=== PATIENT | female | born 1960 | race Caucasian/White ===

== ENCOUNTER 2020-12-14 17:36 | Observation (INO) | payer BC, SELFPAY ==
--- NOTE | ~2020-12-14 | XR_ITS ---
EXAMINATION: XR fluoroscopy no charge DATE: 12/15/2020 09:04 INDICATION: Right ureteral stone. TECHNIQUE: 4 intraoperative fluoroscopic views of the abdomen and pelvis were obtained. I was not pre sent. Fluoroscopy exposure time was 13 seconds. COMPARISON: CT abdomen and pelvis 12/14/2020 FINDINGS: The sound effects person radiograph demonstrates 2 stones in the distal right ureter. Additional images de monstrate a wire in the ureter with absence of the stones. IMPRESSION: 1. Removal of 2 stones from the distal right ureter. Reviewed, dictated and finalized at location A.
--- NOTE | ~2020-12-14 | CT_ITS ---
EXAMINATION: CT abdomen pelvis wo con DATE: 12/14/2020 18:36 INDICATION: Right flank pain TECHNIQUE: Computed tomography (CT) of the abdomen and pelvis was performed without intravenous contr ast. The dose-length product was 930.02 mGy-cm. Automated exposure control and iterative reconstructi on technique were employed. COMPARISON: None. FINDINGS: There is dependent atelectasis. Heart size normal. No significant pleural or pericardial ef fusion. There is a 6 mm right UVJ stone with moderate-severe right hydroureteronephrosis. There are n onobstructing bilateral renal stones. The liver, spleen, pancreas, adrenal glands are unremarkable. S mall fat-containing umbilical hernia. Normal appendix. Nonobstructive bowel gas pattern. No acute oss eous abnormality. There are accessory splenules in the left upper abdomen. IMPRESSION: 1. Right UVJ stone measuring 6 mm with moderate-severe right hydroureteronephrosis. 2: Nonobstructing bilateral renal stones. Reviewed, dictated and finalized at location A. IMPRESSION: 1. Right UVJ stone measuring 6 mm with moderate-severe right hydroureteronephro sis. 2: Nonobstructing bilateral renal stones.
[2020-12-14 17:50] VITALS: BP 132/67; PULSE 65; RESP 20; TEMP 36.4; O2SAT 99
--- NOTE | 2020-12-14 18:15 | ED.ABDPAIN ---
HPI - Abdominal Pain General Chief Complaint: Abdominal Pain Stated Complaint: r flank pain Time Seen by Provider: 12/14/20 18:10 Source: patient Mode of arrival: ambulatory Limitations: no limitations History of Present Illness HPI narrative: Patient is a 60-year-old female complaining of right flank pain, 7 out of 10, sharp, nonradiating accompanied by urinary pressure that started today. Patient denies any chest pain, shortness of breath, abdominal pain, nausea, vomiting, diarrhea, fever or chills. Related Data Allergies Allergy/AdvReac Type Severity Reaction Status Date / Time Sulfa (Sulfonamide Allergy Unknown Verified 12/14/20 18:55 Antibiotics) Review of Systems Review of Systems: All systems reviewed & are unremarkable except as noted in HPI and below Constitutional: Constitutional: Denies body ache(s), Denies chills, Denies excessive sweating, Denies fatigue, Denies fever(s), Denies headache(s), Denies lethargy, Denies malaise, Denies weakness and Denies weight loss Eyes: Eyes: Denies blurry vision, Denies change in vision and Denies loss of vision ENT: Denies dizziness, Denies ear discharge, Denies headache(s), Denies lip swelling, Denies epistaxis, Denies nasal congestion, Denies neck pain, Denies throat swelling and Denies tongue swelling Cardiovascular: Cardiovascular: Denies chest pain, Denies chest pain at rest, Denies chest pain with activity, Denies diaphoresis, Denies rapid heart rate, Denies edema, Denies irregular heart rhythm, Denies lightheadedness, Denies palpitations, Denies dyspnea and Denies dyspnea on exertion Respiratory: Respiratory: Denies chest congestion, Denies cough, Denies hemoptysis, Denies dyspnea and Denies dyspnea on exertion Gastrointestinal: Gastrointestinal: Denies abdominal pain, Denies melena, Denies hematochezia, Denies diarrhea, Denies nausea, Denies vomiting and Denies hematemesis Musculoskeletal: Musculoskeletal: Denies abnormal gait, Denies deformity, Denies joint swelling, Denies limited range of motion, Denies neck pain and Denies numbness Neurologic: Denies Abnormal speech present, Denies abnormal gait, Denies confusion, Denies dizziness, Denies headache(s), Denies focal weakness, Denies loss of vision, Denies numbness, Denies Other visual disturbances, Denies Sensory deficit (Neuro) and Denies weakness Psychiatric: Psychiatric: Denies confusion, Denies depression, Denies auditory hallucinations, Denies homicidal ideation and Denies suicidal ideation Endocrine: Endocrine: Denies cold intolerance, Denies excessive sweating, Denies fatigue, Denies heat intolerance and Denies palpitations Hematologic/Lymphatic: Hematologic/Lymphatic: Denies easy bleeding and Denies easy bruising Allergic/Immunologic: Allergic/Immunologic: Denies lip swelling, Denies throat swelling and Denies tongue swelling PMFSH Social History Social History Gender identity (if verbalized by the patient): Female Comments Past medical history: None Family history: Noncontributory Social history: Non-smoker no EtOH or drug use Exam Const: General: cooperative, healthy appearing, comfortable, no acute distress, well developed, alert and awake; No confusion Orientation/consciousness: oriented to person, oriented to place, oriented to time, patient oriented x3 and No confusion Limitations: no limitations HENMT: Head: normal to inspection, normocephalic and atraumatic Ears: hearing grossly normal bilaterally, TM normal on the right and TM normal on the left General nose exam: Normal external nose present, Normal nares present and No nasal discharge present Face and sinus: normal facial exam Mouth: Yes Normal oral and palatal mucosa present, Yes lip normal, Yes tongue normal and Yes oropharynx normal Throat: posterior oropharynx normal, tonsils normal and uvula midline Eyes: General: appearance normal, both eyes and all related structures Pupils: Equ
[2020-12-14] MEDS: SODIUM CHLORIDE 0.9% IV 1,000 ML 999 ML IV CONT (18:22)
--- NOTE | 2020-12-14 18:25 | PC.NURSE ---
Pt unable to give urine sample at this time.
[2020-12-14 18:27] LABS: Basophils Absolute Auto 0.1 K/mm3 (0.0-0.1); Basophils Percent Auto 0.4 % (0.2-1.2); Eosinophils Absolute Auto 0.1 K/mm3 (0-0.3); Eosinophils Percent Auto 0.5 % (0-4.4); Hematocrit 41.2 % (37.0-47.0); Hemoglobin 13.7 g/dL (12.0-15.0); Immature Granulocyte Absolute 0.03 K/mm3 (0.00-0.031); Immature Granulocyte Percent A 0.2 % (0-0.5); Lymphocytes Absolute Auto 1.96 K/mm3 (0.9-3.2); Lymphocytes Percent Auto 16.3 % (18.3-44.2); Mean Corpuscular HGB Conc 33.3 g/dl (32-36); Mean Corpuscular Hemoglobin 32.2 pg (26-34); Mean Corpuscular Volume 96.7 fl (80-100); Mean Platelet Volume 11.3 fl (7.4-10.4); Monocytes Absolute Auto 0.5 K/mm3 (0.1-0.6); Neutrophils Absolute Auto 9.4 K/mm3 (1.3-6.7); Neutrophils Percent Auto 78.6 % (45.5-73.1); Platelet Count Result 195 k/mm3 (150-375); Red Blood Count 4.26 M/mm3 (4.2-5.4); Red Cell Distribution Width 14.2 % (11.5-14.5)
[2020-12-14 18:41] LABS: Alanine Aminotransferase 19 U/L (4-35); Albumin Level 4.3 g/dL (3.5-5.1); Alkaline Phosphatase 73 U/L (38-126); Anion Gap 6 mmol/L (8-16); Aspartate Amino Transferase 31 U/L (14-36); Bilirubin,Total 0.3 mg/dL (0.2-1.3); Blood Urea Nitrogen 21 mg/dL (7-17); Calcium 9.3 mg/dL (8.4-10.2); Carbon Dioxide 30 mmol/L (22-30); Chloride 105 mmol/L (98-107); Estimated CRCL calculation 64 ml/min; Estimated Glomerular Filt Rate > 60; Glucose 137 mg/dL (65-105); Lipase 80 U/L (23-300); Potassium 3.8 mmol/L (3.4-5.0); Sodium 141 mmol/L (137-145)
[2020-12-14] MEDS: PROMETHAZINE HCL 25 MG/ML AMPUL 12.5 MG IV PUSH (18:57)
[2020-12-14] MEDS: KETOROLAC 30 MG/ML VIAL (*BKC) IV PUSH (18:57)
[2020-12-14] MEDS: TAMSULOSIN HCL 0.4 MG CAPSULE PO (19:05)
[2020-12-14 20:17] LABS: Add Urine Microscopic? YES; Appearance Urine Clear (Clear); Bacteria Urine Trace /hpf; Bilirubin Urine Negative (Negative); Blood Urine Negative (Negative); Color Urine Straw (Yellow); Glucose Urine UA Negative (Negative); Ketones Urine Trace mg/dL (Negative); Leukocyte Esterase Ur Trace LEU/UL (Negative); Mucus Urine Rare /lpf; Nitrate Urine Negative (Negative); Protein Urine Negative (Negative); Specific Grav Ur 1.014 (1.001-1.035); Squamous Epithelial Cell Urine Rare /hpf (Few); Urobilinogen Urine Negative mg/dL (<2.0); WBC Urine 0-3 /hpf
[2020-12-14 21:45] VITALS: BP 118/64; PULSE 73; RESP 18; O2SAT 96
[2020-12-14] MEDS: HYDROmorphone HCL INJ (*CRX) 1 MG/ML SYR 0.5 MG IV PUSH (22:00)
[2020-12-14 22:35] VITALS: BP 120/69; PULSE 79; RESP 18; O2SAT 94
--- NOTE | 2020-12-14 23:45 | ADMGEN ---
This patient, Sue Connolly, was admitted to Medical Room 343-01. Patient/family oriented to hospital policies and general routines including ID bracelet, bed and alarms, visiting hours, pain management, procedures, bathroom and other care routines, personal items, smoking policy, room service/diet, and visiting hours. Information on how to activate the Rapid Response Team has been discussed. Patient/Family are encouraged to report perceived risks to care and to ask questions if they do not understand what they are told or what they should do.
[2020-12-15] VITALS (8 sets, daily range): BP systolic 81–145; BP diastolic 39–64; PULSE 60–85; RESP 11–18; TEMP 36.2–37.1; O2SAT 95–98; BMI 28.3
[2020-12-15] MEDS: LACTATED RINGERS 1,000 ML 125 ML IV CONT (00:08)
--- NOTE | 2020-12-15 06:16 | WPDANESEPP ---
Anes - Eval Pre Procedure Procedure: Cysto, stone extraction, stent placement, MATTHEW Date/Time: 12/15/20 06:16 Surgeon: Matheus Pre Op Diagnosis: Acute unilateral obstructive uropathy Patient Data Age: 60 Gender: F Height: 5 ft 11 in Weight: 92 kg Last Vital Signs Temp 97.6 F 12/15/20 05:18 Pulse 85 12/15/20 05:18 Resp 18 12/15/20 05:18 BP 124/57 L 12/15/20 05:18 Pulse Ox 96 12/15/20 05:18 Allergies Allergy/AdvReac Type Severity Reaction Status Date / Time Sulfa (Sulfonamide Allergy Unknown Verified 12/14/20 23:57 Antibiotics) nitrofurantoin AdvReac Fatigued Verified 12/14/20 23:57 [From Macrobid] Home Medications Medication Instructions Recorded Confirmed Type ascorbic acid (vitamin C) 500 mg PO DAILY 12/15/20 12/15/20 History calcium carbonate-vitamin D3 [All 1 tablet PO DAILY 12/15/20 12/15/20 History Day Calcium] cyanocobalamin (vitamin B-12) 500 mcg PO DAILY 12/15/20 12/15/20 History [Vitamin B-12] multivitamin,[id number]-[id number] 1 tablet PO DAILY 12/15/20 12/15/20 History [Complete Multivitamin] vitamin E 1 tablet PO DAILY 12/15/20 12/15/20 History Laboratory Tests 12/14/20 12/14/20 12/14/20 18:17 18:17 20:04 WBC 12.0 K/mm3 H K/mm3 (4.5-10.0) RBC 4.26 M/mm3 M/mm3 (4.2-5.4) Hgb 13.7 g/dL g/dL (12.0-15.0) Hct 41.2 % % (37.0-47.0) MCV 96.7 fl fl (80-100) MCH 32.2 pg pg (26-34) MCHC 33.3 g/dl g/dl (32-36) RDW 14.2 % % (11.5-14.5) Plt Count 195 k/mm3 k/mm3 (150-375) MPV 11.3 fl H fl (7.4-10.4) Immature Gran % (Auto) 0.2 % % (0-0.5) Neut % (Auto) 78.6 % H % (45.5-73.1) Lymph % (Auto) 16.3 % L % (18.3-44.2) [place] % (Auto) 4.0 % % (2.6-8.5) Eos % (Auto) 0.5 % % (0-4.4) Baso % (Auto) 0.4 % % (0.2-1.2) Lymph # (Auto) 1.96 K/mm3 K/mm3 (0.9-3.2) [place] # (Auto) 0.5 K/mm3 K/mm3 (0.1-0.6) Eos # (Auto) 0.1 K/mm3 K/mm3 (0-0.3) Baso # (Auto) 0.1 K/mm3 K/mm3 (0.0-0.1) Abs Immat Gran (auto) 0.03 K/mm3 K/mm3 (0.00-0.031) Absolute Neuts (auto) 9.4 K/mm3 H K/mm3 (1.3-6.7) Absolute Nucleated RBC 0.0 K/mm3 K/mm3 (0.0-0.012) Nucleated RBC % 0.0 % % (0.0-0.2) Sodium 141 mmol/L mmol/L (137-145) Potassium 3.8 mmol/L mmol/L (3.4-5.0) Chloride 105 mmol/L mmol/L (98-107) Carbon Dioxide 30 mmol/L mmol/L (22-30) Anion Gap 6 mmol/L L mmol/L (8-16) BUN 21 mg/dL H mg/dL (7-17) Creatinine 0.90 mg/dL mg/dL (0.7-1.0) Estim Creat Clear Calc 64 ml/min ml/min Estimated GFR > 60 (59 - ) Glucose 137 mg/dL H mg/dL (65-105) Calcium 9.3 mg/dL mg/dL (8.4-10.2) Total Bilirubin 0.3 mg/dL mg/dL (0.2-1.3) AST 31 U/L U/L (14-36) ALT 19 U/L U/L (4-35) Alkaline Phosphatase 73 U/L U/L (38-126) Total Protein 8.0 g/dL g/dL (6.3-8.2) Albumin 4.3 g/dL g/dL (3.5-5.1) Lipase 80 U/L U/L (23-300) Urine Color Straw (Yellow) Urine Appearance Clear (Clear) Urine pH 7.0 (5.0-9.0) Ur Specific [place] 1.014 (1.001-1.035) Urine Protein Negative mg/dL mg/dL (Negative) Urine Glucose (UA) Negative mg/dL mg/dL (Negative) Urine Ketones Trace mg/dL mg/dL (Negative) Ur Blood (Man) Negative (Negative) Urine Nitrate Negative (Negative) Urine Bilirubin Negative (Negative) Urine Urobilinogen Negative mg/dL mg/dL (<2.0) Leukocyte Esterase Rfl Trace DEVIN/UL H DEVIN/UL (Negative) Urine RBC 3-5 /hpf H /hpf (0-2) Urine WBC 0-3 /hpf /hpf Ur Squamous Epith Cells Rare /hpf /hpf (Few)
--- NOTE | 2020-12-15 07:18 | WPDURCON ---
Urology Consult Note HPI Date Seen: 12/15/20 Requesting Physician: Radha Marroquin DO Primary Care Provider: VP CLIENT SERVICES PHYSICIAN Consult Narrative Narrative: Sue Connolly is a 60 year old female who spontaneously passed 1 ureteral stone several years ago. She presents to the ER last night with acute right flank pain radiating to right lower quadrant. Associated with nausea but no vomiting. She had no fever chills or gross hematuria. Imaging demonstrates several small bilateral nonobstructing kidney stones in 6 mm right distal ureteral stone with significant hydronephrosis. She is admitted for hydration and analgesics and we have scheduled cystoscopy with right ureteroscopy, stone extraction and possible stent placement she is aware the risk including, but not limited to, ureteral injury postoperative hematuria stent irritation. Review of Systems Cardiovascular: Cardiovascular: Denies chest pain, Denies lightheadedness, Denies palpitations and Denies dyspnea Respiratory: Respiratory: Denies dyspnea Gastrointestinal: Gastrointestinal: Denies diarrhea, Denies nausea and Denies vomiting Genitourinary: Genitourinary: Denies hematuria and Denies dysuria Endocrine: Endocrine: Denies palpitations PMF Past Medical History Medical History Acute unilateral obstructive uropathy Overweight (BMI 25.0-29.9) Surgical History Surgical History History of partial hysterectomy Family History Family History Father Colon cancer H/O myomectomy Social History Social History Smoking status: Never smoker Alcohol intake: never Substance use: never Gender identity (if verbalized by the patient): Female Sexual Orientation (if Verbalized by the Patient): Straight or Heterosexual Spiritual care concerns: No Meds Home Medications and Allergies Home Medications Medication Instructions Recorded Confirmed Type ascorbic acid (vitamin C) 500 mg PO DAILY 12/15/20 12/15/20 History calcium carbonate-vitamin D3 [All 1 tablet PO DAILY 12/15/20 12/15/20 History Day Calcium] cyanocobalamin (vitamin B-12) 500 mcg PO DAILY 12/15/20 12/15/20 History [Vitamin B-12] multivitamin,[id number]-yqty-[id number] 1 tablet PO DAILY 12/15/20 12/15/20 History [Complete Multivitamin] vitamin E 1 tablet PO DAILY 12/15/20 12/15/20 History Allergies Allergy/AdvReac Type Severity Reaction Status Date / Time Sulfa (Sulfonamide Allergy Unknown Verified 12/14/20 23:57 Antibiotics) nitrofurantoin AdvReac Fatigued Verified 12/14/20 23:57 [From Macrobid] Vital Signs Vital Signs - 24 hr 12/14/20 17:50 12/14/20 21:45 12/14/20 22:35 Temperature 97.5 F L Pulse Rate 65 73 79 Respiratory Rate 20 18 18 Blood Pressure 132/67 118/64 120/69 Pulse Oximetry 99 96 94 12/15/20 00:00 12/15/20 00:05 12/15/20 05:18 Temperature 98.7 F 98.7 F 97.6 F Pulse Rate 84 84 85 Respiratory Rate 16 16 18 Blood Pressure 145/64 H 145/64 H 124/57 L Pulse Oximetry 98 98 96 Exam Const: General: no acute distress Resp: Effort & Inspection: normal respiratory effort GI: Inspection: non-distended GI Palp: No abdominal tenderness and No Guarding due to palpation present (GI) Auscultation: normal bowel sounds Results Labs CBC & Chem 7: 12/14/20 18:17 12/14/20 18:17 Labs: Short CBC 12/14/20 Range/Units 18:17 WBC 12.0 H (4.5-10.0) K/mm3 Hgb 13.7 (12.0-15.0) g/dL Hct 41.2 (37.0-47.0) % Plt Count 195 (150-375) k/mm3 [facility] 12/14/20 18:17 Sodium 141 Potassium 3.8 Chloride 105 Carbon Dioxide 30 BUN 21 H Creatinine 0.90 Glucose 137 H Calcium 9.3 Liver Function 12/14/20 Range/Units 18:17 Total Bilirubin 0.3 (0.2-1.3) mg/dL AST 31 (14-36) U
--- NOTE | 2020-12-15 07:25 | WPDHPUPDATE1 ---
History and Physical Update Update Date/Time: 12/15/20 07:25 History and Physical has been reviewed, including an updated exam of the patient. There are NO changes in the patient's condition. Risks, benefits, and alternatives have been discussed and questions answered. Patient agrees to proceed with procedure.
[2020-12-15] MEDS: LACTATED RINGERS 1,000 ML 30 ML IV CONT (07:30)
--- NOTE | 2020-12-15 07:39 | WPDANESEFPP ---
Anes - Eval Final PreProcedure Day of Procedure 12/15/20 07:39 Patient weight: overweight Heart: regular rate and rhythm Lungs: clear to auscultation and normal air movement Airway: Mallampati scale class II Neurological: alert and oriented Last oral intake: >/= 8 hours ASA classification: II Emergent: yes Anesthetic plan: proceed Anesthesia type and monitoring: general LMA and standard monitoring Informed Consent: The patient's anesthetic plan and its attendant risks and benefits were discussed with the patient/family/POA. Questions were solicited and answers provided to the satisfaction of the patient/family/POA.
[2020-12-15] MEDS: ceFAZolin 2 GM/D5W 50 ML 2 GM/50 ML BAG IVPB (07:43)
[2020-12-15] MEDS: KETOROLAC 30 MG/ML VIAL (*BKC) IV PUSH (08:00)
--- NOTE | 2020-12-15 08:05 | PM.PROC ---
Procedure Note - Detailed Date of procedure: 12/15/20 Pre-op diagnosis: Acute unilateral obstructive uropathy Post-op diagnosis: same Procedure performed: Cystoscopy, right ureteroscopy with stone extraction Description of procedure: The patient was brought to the operative suite where she is prepped and draped in a routine sterile fashion while in the dorsal lithotomy position after the uneventful induction of a general LMA anesthetic. A 19F rigid cystoscope was placed in the bladder. The patient had no evidence of urethral stricture or bladder neck contracture. The bladder mucosa was endoscopically normal without hyperemia or neoplasm. There was a single, orthotopic ureteral orifice bilaterally. A 0.035 glidewire was advanced into the right renal pelvis under fluoroscopy. The distal ureter was dilated with an 8F/10F ureteral dilator. Ureteroscopy was undertaken with a short, tapered, semi-rigid ureteroscope and the stones (actually 2 small contiguous stones) were extracted with ease using a 1.9F Escape disposable stone basket. Due to the ease of this manipulation I opted not to place a ureteral stent. The patient's bladder was emptied and was taken to the recovery room having tolerated this procedure well. Anesthesia: GLMA Surgeon: Anil Jarvis MD Estimated blood loss (mL): 0 Drains: No Packing: No Pathology: yes Complications: No immediate complications Condition: stable Disposition: PACU
--- NOTE | 2020-12-24 16:02 | PM.DS ---
DS: Admitting Diagnosis Admitting Diagnosis Admitting Diagnosis: Right ureteral stone DS: Discharge Diagnosis Discharge Diagnosis (1) Right ureteral stone: Code(s): N20.1 - Calculus of ureter Status: Acute DS: Summary Hospital Course Hospital Course: Admitted with painful right ureteral stone. Following uneventful extraction she tolerated diet and had minimal pain -> hence, decision for discharge. Time Spent with Patient Time attestation: Total time spent providing and/or coordinating discharge services:20 min Exam Const: General: no acute distress Resp: Effort & Inspection: normal respiratory effort GI: Inspection: non-distended GI Palp: No abdominal tenderness and No Guarding due to palpation present (GI) Auscultation: normal bowel sounds DS: Data Data Completed and Pending Completed studies during hospitalization: Pending at discharge 12/15/20 07:59 Surgical [PTH] Routine Discharge Plan Discharge Attending physician on discharge: Radha Marroquni Consulting providers: Anil Jarvis ; Aren Gutierrez ; Jewel Howell V. Discharging Clinician: Radha Marroquin Patient Disposition: Home, Self-Care Activity: no shower Diet: as tolerated Discharge Instructions: 1) Activity: no driving or important decisions x24 hours. 2) Diet: resume your normal, pre-admission diet. 3) Follow-up: 2-3 weeks / call for appointment ([phone]). Patient Instructions: Antibiotic Form Stand Alone Forms: General Discharge Information Follow-up/Referrals: Anil Jarvis MD [Physician] - Discharge Medications: New hydrocodone-acetaminophen 5-325 mg tablet 1 - 2 tablet PO Q6H PRN (Reason: pain) Qty: 20 RF: 0 cephalexin 500 mg capsule 500 mg PO Q8H Qty: 9 RF: 0 Continued cyanocobalamin (vitamin B-12) [Vitamin B-12] 500 mcg Tablet 500 mcg PO DAILY RF: 0 ascorbic acid (vitamin C) 500 mg Tablet 500 mg PO DAILY RF: 0 vitamin E 1,000 unit Tablet 1 tablet PO DAILY RF: 0 multivitamin,[id number]-[id number] Tablet 1 tablet PO DAILY RF: 0 calcium carbonate-vitamin D3 600 mg(1,500mg) -500 unit Tablet Extended Release 24 Hr 1 tablet PO DAILY RF: 0 Date of admission: 12/14/20 22:00 Primary Care Provider: PHYSICIAN,PRODUCT CONTROL AND LOGISTICS ANALYST Admitting Provider: Radha Marroquin Attending physician on admission: Radha Marroquin Condition: Improved
== END 2020-12-15 11:00 | disposition home or self-care (01) ==
LOC: ANHED 21:59 → ANH3MED 23:12
PROVIDERS: Urology; Admitting Provider Internal Medicine; Emergency Provider Emergency Medicine; Visit Provider Internal Medicine
PROC: (CPT 52352; principal; 2020-12-15 07:30)
DX: N13.2 Hydronephrosis with renal and ureteral calculous obstruction (principal)
CPT/HCPCS: 52352; 36415; 74176; 80053; 81001; 82365; 83690; 85025; 88300; 96361; 96365; 96374; 96375; 99285; A9270; C1769; C1887; G0378; J0690; J1100; J1170; J1885; J2250; J2405; J2550; J2704; J3010; J7030; J7120; Q9966

== ENCOUNTER → 2021-10-18 15:59 | Outpatient (CLI) | payer BC, SELFPAY ==
--- NOTE | ~2021-10-18 | XR_ITS ---
XR abdomen/kub 1V DATE: 10/18/2021 16:21 INDICATION: Kidney stone TECHNIQUE: AP projection, 2 views COMPARISON: 12/14/2020 CT abdomen pelvis FINDINGS: No obvious urinary tract calcification is noted. Noncontrast CT abdomen pelvis would be mor e sensitive and accurate for detection of urinary tract calculi. There is a moderately prominent amount of fecal material within the colon but no evidence of bowel ob struction. The psoas shadows are intact. No visceromegaly. Included skeletal structures are unremarkable. The lung bases appear clear. IMPRESSION: Nonspecific abdomen Reviewed, dictated and finalized at [facility]. Reviewed, dictated and finalized at location A. IMPRESSION: Nonspecific abdomen
== END ==
PROVIDERS: PCP Hospitalist; Visit Provider Urology
DX: N20.0 Calculus of kidney (principal)
CPT/HCPCS: 74018